=== PATIENT | female | born 1985 | race Caucasian/White ===

== ENCOUNTER 2024-06-10 14:32 | Emergency (ER) | payer OTHER, SELFPAY ==
[2024-06-10 14:36] VITALS: BP 126/62; PULSE 87; RESP 20; TEMP 36.9; O2SAT 97
--- NOTE | 2024-06-10 14:56 | ED.GENADUL_ITS ---
Discharge Plan Discharge Details Chief Complaint: Vascular ED Provider: Isamar Jolley [facility] General Date/Time Provider Initiated Documentation: 06/10/24 14:39 . HPI Narrative: Alexandra is a 38 year old female who presents to the emergency department today for evaluation of L leg swelling/tingling. She reports this started yesterday, is similar to previous episodes of DVT. 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 Currently taking enoxaparin. Mild episode of shortness of breath earlier today, now resolved (attributed to heat and ). Denies fever/chills, BA, dizziness, CP, SOB, n/v, change in PO intake, change in bowel/bladder dysfunction, recent injury/surgery/immobility/hormone use. No h/o cancer. Past medical history is significant for Factor V Leiden deficiency, denies other chronic diseases. A0, approx 13 weeks , no complications with this or previous. Physical exam reassuring. L calf 40 cm vs R calf 36 cm. No obvious swelling, erythema, or calf tenderness. +peripheral pulses, brisk cap refill. No color change to extremity. PT overall well appearing, in no acute distress. Easy work of breathing, lung sounds clear bilaterally. D/dx includes but is not limited to: DVT, muscle strain, nerve impingement. No red flags concerning for electrolyte imbalance or infection requiring bloodwork or other diagnostic imaging. US lower extremity ordered. Handoff report given to Vikki PINEDO, evening JUDITH with US pending. General Stated Complaint: Vascular ANGELA: 3 Review of Systems Narrative: see HPI Exam Const General: cooperative, healthy appearing, comfortable, no acute distress and well developed Nutritional Appearance: average body habitus and well nourished Orientation: alert and oriented x3 Resp Effort & Inspection: normal respiratory effort and able to speak in complete sentences Auscultation: clear to auscultation bilaterally Cardio Rate: regular rate Rhythm: regular rhythm Skin General skin exam: no rashes or lesions noted Trauma: no lacerations or abrasions Neuro General: patient alert, patient oriented x3, tone normal and moves all extremities Sensory Exam: no sensory deficits noted Extrem General: normal to inspection, full ROM and capillary refill normal Right lower extremity: normal to inspection, full ROM, normal capillary refill, no joint enlargement and lower leg (36 cm) Details: normal to inspection; no edema Left lower extremity: normal to inspection, full ROM, normal capillary refill, no joint enlargement and lower leg (40 cm) Details: normal to inspection and no edema; no erythema, no tenderness, no localized swelling, no abrasions, no lacerations, no ecchymosis, no crepitus, no deformity and no unusual warmth; no edema Course Vital Signs Vital signs: Vital Signs Temperature 36.9 C 06/10/24 14:36 Pulse 87 06/10/24 14:36 Respiratory Rate 20 06/10/24 14:36 Blood Pressure 126/62 06/10/24 14:36 Pulse Oximetry 97 06/10/24 14:36 Temperature 36.9 C 06/10/24 14:36 Pulse 87 06/10/24 14:36 Respiratory Rate 20 06/10/24 14:36 Blood Pressure 126/62 06/10/24 14:36 Blood Pressure Position Sitting 06/10/24 14:36 Pulse Oximetry 97 06/10/24 14:36 Oxygen Delivery Method Room Air 06/10/24 14:36 Oxygen Flow Rate 0 06/10/24 14:36 Medical Decision Making Quality:SDOH Health Related Social Needs: No Data to Display [facility] Social History Smoking risk assessment performed?: No Alcohol Intake: current PAWSS Have you Been Recently Intoxicated or Drunk Within the Last 30 days?: No Have you Ever Experienced Previous Episodes of Alcohol Withdrawal?: No Have you ever Experienced Withdrawal Seizures?: No Have you ever Experienced Delirium Tremens(DT)s?: No Have you ever undergone Alcohol Rehabilitation Treatment (i.e, in ot outpatient treatment programs)?: No Have you ever Experienced Blackouts?: No Have you ever Combined Alcohol with other Downers within the last 90 days?: No Have you ever Combined Alcohol with any other Substance of Abuse during the last 90 days?: No Positive Blood Alcohol level on Presentation? [PCS.BAL]: No Evidence of Increased Autonomic Activity (i.e. HR>120, tremor, sweating, agitation, nausea)?: No Result: 0
[2024-06-10 14:58] VITALS: RESP 16
--- NOTE | 2024-06-10 15:30 | DI.US_ITS ---
Exam(s) US LOWER EXTREMITY VENOUS LT EXAM: US LOWER EXTREMITY VENOUS LT CLINICAL HISTORY: h/o DVT, swollen painful leg. TECHNIQUE: Lower extremity venous ultrasound performed using grayscale, color-flow, and spectral Do ppler analysis. COMPARISON: No exams were available for comparison FINDINGS: The common femoral, femoral and popliteal veins demonstrate normal compressibility, augmentation, and color Doppler. The posterior tibial and peroneal veins are patent. No saphenous vein thrombosis or other superficial venous thrombosis is seen. No hematoma or Ward's cyst is seen. IMPRESSION: Negative lower extremity ultrasound. No evidence of DVT. DATA REPOSITORY:
[2024-06-10 16:00] VITALS: BP 126/60; PULSE 86; RESP 18; TEMP 36.7; O2SAT 97
== END 2024-06-10 16:21 | disposition home or self-care (01) ==
LOC: ER 16:19
PROVIDERS: Emergency Provider Physician Assistant
DX: M79.606 Pain in leg, unspecified (principal); Z86.718 Personal history of other venous thrombosis and embolism
CPT/HCPCS: 99283; 99284; 93971